=== PATIENT | male | born 1960 | race Caucasian/White ===

== ENCOUNTER 2023-07-18 08:07 | Observation (INO) ==
--- NOTE | 2023-07-18 08:19 | Emergency Department Note ---
Impression & Plan Stroke-like symptoms, HTN (hypertension), Hyperglycemia due to type 2 diabetes mellitus ED Provider Note Provider: Estiven Li MD DATE OF SERVICE: 07/18/2023 CHIEF COMPLAINT: Facial droop, speech issues, tingling HISTORY OF PRESENT ILLNESS: Patient is a 63-year-old gentleman history of diabetes and seizures by report presenting via ambulance from the present today. Patient states he went to bed normal around 11 PM this previous night. Awoke this morning around 530 or so noted by his cellmate to have some odd speech. [facility] Did have breakfast. Noted to have some right facial droop with some tingling of the right arm and to the right face. States his right-sided vision is also a little bit blurred in both eyes. Denies any headache or pain. Denies trauma. Denies chest pain, shortness of breath, or abdominal pain or nausea. Denies any difficulty swallowing with the brief breakfast yet earlier. Denies a history of stroke. Denies any numbness or tingling in the legs at this time. Denies dizziness or lightheadedness PAST MEDICAL HISTORY: As noted above MEDICATIONS: Reviewed medication list includes insulin SOCIAL HISTORY: Inmate at the [facility] correctional [facility] [place] PHYSICAL EXAM: GENERAL: alert and oriented in no acute distress on stretcher Head: normocephalic and atraumatic EYES: No injection, discharge or icterus except for some mild injection of the right eye. Some decreased length and closure of the right eye. PERRL, EOMI. Little bit of blurriness in both eyes reported in the right sided visual mendoza. Does have a little bit of difficulty of closing his right eye. NECK: Trachea midline. Supple. ENT: Mucous membranes pink and moist. Pharynx without erythema or exudate. LUNGS: Airway patent. No retractions. Breath sounds clear HEART: Regular rate and rhythm. No chest wall tenderness ABDOMEN: Soft and non-tender, without guarding or rebound. SKIN: Acyanotic, warm, dry, without rashes EXTREMITIES: Without swelling, tenderness or deformity NEUROLOGICAL: Moving all extremities to command. Right facial droop noted and asymmetry. Some slight decreased sensation to the right face and right arm. Legs symmetric sensation. Good fitter type bar and segment strength bilaterally in the hands as well as good strength in the bilateral lower legs. EK bpm normal sinus rhythm. No PVC or PAC. No acute ST segment elevation or depression with a QTc of 452. CONTINUOUS CARDIAC MONITORING: was ordered and showed a heart rate of 80s and 90s bpm in normal sinus rhythm Patient's laboratory studies and imaging reviewed. Differential includes Infection, dehydration, metabolic abnormality, hypo/hyperglycemia, electrolyte disturbance, anemia, hypoxia, cardiac sources, intracerebral event, toxicologic, neurologic, as well as other pathologies. IMPRESSION/MEDICAL DECISION MAKING: No infectious symptomatologies. Unfortunately wake-up stroke with last known well outside 4-1/2-hour window. Some subtle right-sided numbness with the right facial droop noted. Reported some mildly blurred vision in the right visual mendoza. No headache or trauma. Not hypoglycemic. Sent for CT scans of the head as well as CT angiograms of the head and neck to look for possible vascular abnormality or bleeding. Without pain. Not severely hypertensive. Does have risk factors for CVA. TNK/thrombolytics not indicated given significant time since last known well. Seems less likely to be LVO given somewhat low NIH and deficits. Blood work here without significant cytosis or anemia. No severe electrolyte abnormalities with some mild hyperglycemia likely related to diabetes noted. No troponin elevation I doubt this is cardiac in nature. Negative COVID testing. All the facial findings could represent Hudson's palsy including significant and closing his right eye, extension of the symptoms into the arm as well as the report of some blurry vision in both eyes does not make me think this represents Hudson's palsy. Lyme screen was added. CTAs per radiology report without evidence of significant vascular abnormality. Again outside the window for thrombolytics. Will bring to the hospital for further stroke workup and evaluation. Hospitalist contacted and patient updated. DIAGNOSIS: Strokelike symptoms, hyperglycemia due to type 2 diabetes, hypertension DISPOSITION: Hospitalist will evaluate Patient was agreeable with this plan. 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 Beliefs That Will Affect Care: None marital status: Current Living Situation: Other Current Living Situation Comment: retirement Feels Safe at Home: Yes Assistive Devices: Cane Allergies Allergies Allergy/AdvReac Type Severity Reaction Status Date / Time No Known Allergies Allergy Verified 12/06/20 12:23 Home Meds Home Medications Medication Instructions Recorded Confirmed insulin human U-100 NPH-regulr 20 unit subcut BID 09/28/19 12/06/20 70-30 mix 100 unit/mL subcutaneous susp (Novolin 70/30 U-100 Insulin) insulin regular human 100 unit/mL 1 sliding scale dose subcut BID 09/28/19 12/06/20 injection solution (Novolin R Regular U-100 Insulin) topiramate 50 mg tablet (Topamax) 50 mg PO BID 11/21/19 12/06/20 aripiprazole 5 mg tablet 5 mg PO HS 01/19/20 12/06/20 atorvastatin 40 mg tablet (Lipitor) 40 mg PO HS 12/06/20 12/06/20 diphenhydramine HCl 50 mg capsule 50 mg PO HS 12/06/20 12/06/20 lisinopril 10 mg tablet 10 mg PO QAM 12/06/20 12/06/20 metformin 1,000 mg tablet 1,000 mg PO BID 12/06/20 12/06/20 paroxetine HCl 20 mg tablet (Paxil) 20 mg PO QAM 12/06/20 12/06/20 phenytoin 50 mg chewable tablet 150 mg PO BID 12/06/20 12/06/20 (Dilantin Infatabs) sulfamethoxazole 800 1 tab PO BID 12/06/20 12/06/20 mg-trimethoprim 160 mg tablet (Bactrim DS) Results & Data (ED) Vital Signs Vital Signs - 24 hr 07/18/23 08:16 07/18/23 08:16 07/18/23 09:57 Temperature 36.6 C Temperature Source Oral Pulse Rate 100 H Pulse Rate [Right Finger] 81 Pulse Rhythm [Right Finger] Pulse Strength [Right Finger] Respiratory Rate 18 18 Respiratory Effort / Characteristics Non-Labored Spontaneous Respiratory Depth Normal Blood Pressure 168/100 H Blood Pressure [Left Arm] 128/89 Blood Pressure Mean 122 Blood Pressure Mean [Left Arm] 102 Blood Pressure Position [Left Arm] Pulse Oximetry 95 95 95 Oxygen Delivery Method Room Air Room Air Room Air Sepsis Recent Fever Within 48 Hours No Sepsis New/Unexplained Change in Mental Status N/A Sepsis Action Taken by Nursing No Action Required 07/18/23 12:09 07/18/23 14:00 Temperature Temperature Source Pulse Rate Pulse Rate [Right Finger] 76 69 Pulse Rhythm [Right Finger] Regular Regular Pulse Strength [Right Finger] Normal Normal Respiratory Rate 18 17 Respiratory Effort / Characteristics Non-Labored Spontaneous Non-Labored Spontaneous Respiratory Depth Normal Normal Blood Pressure Blood Pressure [Left Arm] 136/96 119/97 Blood Pressure Mean Blood Pressure Mean [Left Arm] 109 104 Blood Pressure Position [Left Arm] Semi-fowlers Pulse Oximetry 96 95 Oxygen Delivery Method Room Air Room Air Sepsis Recent Fever Within 48 Hours Sepsis New/Unexplained Change in Mental Status Sepsis Action Taken by Nursing Laboratory Data 07/18/23 08:17 07/18/23 08:17 Lab Results 07/18/23 07/18/23 07/18/23 Range/Units 08:12 08:17 08:19 WBC 7.93 (4.8-10.8) K/ul RBC 5.15 (4.70-6.10) M/uL Hgb 14.9 (14.0-18.0) g/dl POC Hgb (14.0-18.0) g/dl Hct 43.7 (42.0-52.0) % POC Hct (42-52) % MCV 84.9 (80.0-100.0) fL MCH 28.9 (25.0-34.0) pg MCHC 34.1 (32.0-36.0) g/dL RDW Std Deviation 39.1 (36.4-46.3) fL RDW Coeff of Genny 12.7 (11.5-14.5) % Plt Count 283 (130-400) K/uL MPV 10.4 (9.4-12.4) fL Immature Gran % (Auto) 0.6 % Neut % (Auto) 55.0 % Lymph % (Auto) 29.9 % [place] % (Auto) 7.1 % Eos % (Auto) 6.6 % Baso % (Auto) 0.8 % Neut # (Auto) 4.37 (1.40-6.50) K/uL Lymph # (Auto) 2.37 (1.20-3.40) K/uL [place] # (Auto) 0.56 (0.11-0.59) K/uL Eos # (Auto) 0.52 H (0.00-0.50) K/uL Baso # (Auto) 0.06 (0.00-0.20) K/uL Immature Gran # (Auto) 0.05 (0.01-0.20) K/uL PT 12.8 H (9.0-12.0) Seconds INR 1.2 H (0.9-1.1) APTT 28 (21-31) Seconds PTT Ratio 1.0 POC Sodium (135-144) mmol/L Sodium 133 L (136-145) mmol/L POC Potassium (3.3-5.0) mmol/L Potassium 4.1 (3.5-5.1) mmol/L POC Chloride (101-112) mmol/L Chloride 100 (98-107) mmol/L Carbon Dioxide 22 (21-32) mmol/L POC Total CO2 (24-31) mmol/L Anion Gap 11 (3-11) POC Anion Gap (16-25) mmol/L POC BUN (7-18) mg/dl BUN 10 (6-23) mg/dl Creatinine 0.69 (0.6-1.4) mg/dl POC Creatinine (0.6-1.3) mg/dl Est Cr Clr Drug Dosing 134.4 ml/min Est GFR ( Amer) 117.9 ml/min Est GFR (Non-Af Amer) 101.7 ml/min BUN/Creatinine Ratio 14.5 (10-20) Glucose 250 H (70-99(Fasting)) mg/dl POC Glucose 231 H (70-99) mg/dl POC Glucose (other) (70-99) mg/dl Calcium 9.3 (8.6-10.3) mg/dl POC Ioniz Calcium Noé (1.12-1.32) mmol/l Magnesium 1.7 (1.7-2.4) mg/dl Total Bilirubin 0.7 (0.2-1.0) mg/dl AST 33 (13-39) U/L ALT 33 (7-52) U/L Alkaline Phosphatase 58 (34-104) U/L Troponin I High Sens 7.2 (0-20) pg/ml Total Protein 7.8 (6.0-8.3) gm/dl Albumin 4.1 (3.4-5.0) gm/dl Globulin 3.7 (2.5-4.0) gm/dl Albumin/Globulin Ratio 1.1 (0.9-2) Lyme Disease Screen Negative (Negative) SARS-CoV-2, RNA, NAAT NEGATIVE (NEGATIVE) Blood Type Antibody Screen 07/18/23 07/18/23 Range/Units 08:21 08:24 WBC (4.8-10.8) K/ul RBC (4.70-6.10) M/uL Hgb (14.0-18.0) g/dl POC Hgb 15.3 (14.0-18.0) g/dl Hct (42.0-52.0) % POC Hct 45 (42-52) % MCV (80.0-100.0) fL MCH (25.0-34.0) pg MCHC (32.0-36.0) g/dL RDW Std Deviation (36.4-46.3) fL RDW Coeff of Genny (11.5-14.5) % Plt Count (130-400) K/uL MPV (9.4-12.4) fL Immature Gran % (Auto) % Neut % (Auto) % Lymph % (Auto) % [place] % (Auto) % Eos % (Auto) % Baso % (Auto) % Neut # (Auto) (1.40-6.50) K/uL Lymph # (Auto) (1.20-3.40) K/uL [place] # (Auto) (0.11-0.59) K/uL Eos # (Auto) (0.00-0.50) K/uL Baso # (Auto) (0.00-0.20) K/uL Immature Gran # (Auto) (0.01-0.20) K/uL PT (9.0-12.0) Seconds INR (0.9-1.1) APTT (21-31) Seconds PTT Ratio POC Sodium 135 (135-144) mmol/L Sodium (136-145) mmol/L POC Potassium 4.1 (3.3-5.0) mmol/L Potassium (3.5-5.1) mmol/L POC Chloride 100 L (101-112) mmol/L Chloride (98-107) mmol/L Carbon Dioxide (21-32) mmol/L POC Total CO2 22 L (24-31) mmol/L Anion Gap (3-11) POC Anion Gap 18.0 (16-25) mmol/L POC BUN 9 (7-18) mg/dl BUN (6-23) mg/dl Creatinine (0.6-1.4) mg/dl POC Creatinine 0.5 L (0.6-1.3) mg/dl Est Cr Clr Drug Dosing ml/min Est GFR ( Amer) ml/min Est GFR (Non-Af Amer) ml/min BUN/Creatinine Ratio (10-20) Glucose (70-99(Fasting)) mg/dl POC Glucose (70-99) mg/dl POC Glucose (other) 267 H (70-99) mg/dl Calcium (8.6-10.3) mg/dl POC Ioniz Calcium Noé 1.19 (1.12-1.32) mmol/l Magnesium (1.7-2.4) mg/dl Total Bilirubin (0.2-1.0) mg/dl AST (13-39) U/L ALT (7-52) U/L Alkaline Phosphatase (34-104) U/L Troponin I High Sens (0-20) pg/ml Total Protein (6.0-8.3) gm/dl Albumin (3.4-5.0) gm/dl Globulin (2.5-4.0) gm/dl Albumin/Globulin Ratio (0.9-2) Lyme Disease Screen (Negative) SARS-CoV-2, RNA, NAAT (NEGATIVE) Blood Type AB Positive Antibody Screen NEGATIVE Administered Medications Discontinued Medications Ioversol (Optiray 320 125ml) 112 ml IV ONCE ONE Stop: 07/18/23 08:33 Last Admin: 07/18/23 08:32 Dose: 112 ml Documented By: RIKY Multi-Ingredient Cream (Artificial Tears Op Oint 3.5 Gm Tube) 1 appln OP NOW ONE Stop: 07/18/23 09:28 Last Admin: 07/18/23 10:21 Dose: 1 appln Documented By: HARSHA Imaging Data Radiologist's Impression: Head CT 07/18/23 08:[address] DOSE: HISTORY: Right-sided facial droop. Slurred speech. R neuro deficit, acute stroke suspected TECHNIQUE: Multiaxial CT images of the head were performed without the use of intravenous contrast. Automated exposure control was utilized for this study. A dose lowering technique was utilized adhering to the principles of ALARA. Comparison: Head CT 12/06/2020. Findings: Mucosal thickening within the ethmoid air cells and maxillary sinuses with a small fluid level within the left maxillary sinus. This suggests acute or chronic paranasal sinusitis. The mastoid air cells are clear. The calvarium and skull base are intact. The ventricles and sulci are within normal limits. There is no mass, hematoma, midline shift, or acute infarct. Impression: No acute intracranial abnormality. Paranasal sinus disease as described above. ACT 112: Negative or not required by law. Electronically signed by: Kevin Villafana M.D. 07/18/2023 8:58 AM Head CTA 07/18/23 08:12 HEAD CTA HISTORY: R neuro deficit, acute stroke suspected TECHNIQUE: Multiaxial CT images of the head were performed following the intravenous administration of contrast to evaluate the major cerebral vessels. 3D/MIP images were also obtained. Sagittal and coronal reformats were reviewed. A dose lowering technique was utilized adhering to the principles of ALARA. COMPARISON: None. FINDINGS: There is no mass, hematoma, midline shift, or acute infarct. Visualized intracranial internal carotid arteries, distal vertebral arteries, and basilar artery are widely patent. There is no significant stenosis, occlusion, or aneurysm seen within the bilateral ACAs, MCAs, or lead database developer. The major dural venous sinuses are patent. IMPRESSION: No significant stenosis, occlusion, or aneurysm within the [place] of [place]. ACT 112: Negative or not required by law. Electronically signed by: Kevin Villafana M.D. 07/18/2023 9:01 AM Neck CTA 07/18/23 08:12 CT angio neck with con CLINICAL HISTORY: 63 years-old Male with neuro deficit, acute stroke suspected. Acute stroke like symptoms COMPARISON STUDY: CTA head of same day TECHNIQUE: Following the IV administration of 112 mL of Optiray, CT angiogram of the neck was performed from the aortic arch to the skull base. Images are reviewed in the axial, sagittal, and coronal planes. 3-D MIPS images are created and assessed. IV contrast was administered without complication. All measurements were calculated based on NASCET criteria. A dose lowering technique was utilized adhering to the principles of ALARA. CT DOSE: 1123.49 mGy.cm FINDINGS: Patency of the common and internal carotid arteries with only minimal atherosclerosis. The vertebral arteries are codominant and widely patent. No aneurysm, dissection, high-grade stenosis or arterial occlusion. Moderate mucosal thickening of the imaged paranasal sinuses. Multilevel degenerative changes of the cervical spine. Nonspecific borderline enlarged cervical chain lymph nodes measure up to 10 mm. Lung apices are clear without pneumothorax. IMPRESSION: 1. Unremarkable CTA of the neck. 2. Moderate mucosal thickening of the paranasal sinuses. ACT 112: Negative or not required by law. The above report was generated using voice recognition software. It may contain grammatical, syntax or spelling errors. Electronically signed by: Harjeet Murphy M.D. 07/18/2023 9:05 AM Brain MRI 07/18/23 10:23 MR brain wo con CLINICAL HISTORY: right facial droop TECHNIQUE: Multiplanar and multisequence MR images of the brain were obtained without intravenous contrast. Comparison: None available at the time of this dictation. FINDINGS: No abnormal restricted diffusion is identified. Foci of T2 and FLAIR hyperintensity are noted in the paraventricular areas consistent with chronic small vessel ischemic disease. Ex vacuo ventriculomegaly and sulcal enlargement is noted compatible with diffuse volume loss. No mass is seen. There is no mass effect or midline shift. There is no evidence of acute intraparenchymal hemorrhage. No extra axial fluid collections are seen. The corpus callosum, pituitary gland, and cerebellar tonsils appear grossly unremarkable. Flow voids of the major intracranial arterial vessels are identified. Bilateral maxillary sinus disease is seen. IMPRESSION: Bilateral maxillary sinus disease is seen. No evidence of acute infarct. ACT 112: Negative or not required by law. Electronically signed by: Ignacio Glover M.D. 07/18/2023 1:27 PM Discharge Plan Visit Data Chief Complaint: Stroke/CVA Symptoms ED Provider: Estiven Li Discharge Problem: Stroke-like symptoms, HTN (hypertension), Hyperglycemia due to type 2 diabetes mellitus Patient Disposition: Being Evaluated by Hospitalist Forms Stand Alone Forms: [facility] Prescriptions Prescriptions: No Action aripiprazole 5 mg Tablet 5 mg PO HS Rx Instructions: Must crush and float in water with mouth check Novolin 70/30 U-100 Insulin 100 unit/mL (70-30) Suspension 20 unit SUBCUT BID Rx Instructions: 0630 and 1530 Novolin R Regular U100 Insulin 100 unit/mL Solution 1 sliding scale dose SUBCUT BID Rx Instructions: <200=no coveraGe, 201-250=2 units, 251-300=4 units, 301-350=6 units, 351- 400=8 units, >400=10 units. 0630 AND 1530. topiramate [Topamax] 50 mg Tablet 50 mg PO BID atorvastatin [Lipitor] 40 mg Tablet 40 mg PO HS Rx Instructions: CRUSH diphenhydramine HCl 50 mg Capsule 50 mg PO HS Rx Instructions: Crush and float in water phenytoin [Dilantin Infatabs] 50 mg Tablet,Chewable 150 mg PO BID Rx Instructions: Chew and swallow 3 tablets twice daily sulfamethoxazole-trimethoprim [Bactrim DS] 800-160 mg Tablet 1 tab PO BID paroxetine HCl [Paxil] 20 mg Tablet 20 mg PO QAM Rx Instructions: Crush and float in water metformin 1,000 mg Tablet 1,000 mg PO BID lisinopril 10 mg Tablet 10 mg PO QAM Rx Instructions: CRUSH Referrals Referrals: Cydney WALTER [Primary Care Provider] - Discharge Problem: HTN (hypertension) Qualifiers: Hypertension type: unspecified Qualified Code(s): I10 - Essential (primary) hypertension Hyperglycemia due to type 2 diabetes mellitus Qualifiers: Diabetes mellitus alf insulin use: with alf use Qualified Code(s): E11.65 - Type 2 diabetes mellitus with hyperglycemia
[2023-07-18 08:31] LABS: Basophils # (auto) 0.06 K/uL (0.00-0.20); Basophils % (auto) 0.8 %; Eosinophils # (auto) 0.52 K/uL (0.00-0.50); Eosinophils % (auto) 6.6 %; Hematocrit (blood only) 43.7 % (42.0-52.0); Hemoglobin 14.9 g/dl (14.0-18.0); Immature Granulocytes # (auto) 0.05 K/uL (0.01-0.20); Immature Granulocytes % (auto) 0.6 %; Lymphocytes # (auto) 2.37 K/uL (1.20-3.40); Lymphocytes % (auto) 29.9 %; Mean Corpuscular Hemoglobin 28.9 pg (25.0-34.0); Mean Corpuscular Hgb Conc 34.1 g/dL (32.0-36.0); Mean Corpuscular Volume 84.9 fL (80.0-100.0); Mean Platelet Volume 10.4 fL (9.4-12.4); Monocytes # (auto) 0.56 K/uL (0.11-0.59); Monocytes % (auto) 7.1 %; Neutrophils # (auto) 4.37 K/uL (1.40-6.50); Platelet Count 283 K/uL (130-400); RDW Coefficient of Variation 12.7 % (11.5-14.5); RDW Standard Deviation 39.1 fL (36.4-46.3); Red Blood Count 5.15 M/uL (4.70-6.10); White Blood Count 7.93 K/ul (4.8-10.8)
[2023-07-18] MEDS: OPTIRAY 320 125ml IV ONE (08:32)
[2023-07-18 08:36] LABS: iSTAT Creatinine 0.5 mg/dl (0.6-1.3); iSTAT Hemoglobin 15.3 g/dl (14.0-18.0); iSTAT Ionized Calcium 1.19 mmol/l (1.12-1.32); iSTAT Potassium 4.1 mmol/L (3.3-5.0)
[2023-07-18 08:50] LABS: Albumin Globulin Ratio 1.1 (0.9-2); Albumin Level 4.1 gm/dl (3.4-5.0); BUN Creatinine Ratio 14.5 (10-20); Bilirubin,Total 0.7 mg/dl (0.2-1.0); Calcium 9.3 mg/dl (8.6-10.3); Creatinine Clr Calc Pharmacy 134.4 ml/min; Est GFR (African American) 117.9 ml/min; Est GFR (Non-African American) 101.7 ml/min; Globulin 3.7 gm/dl (2.5-4.0); Magnesium 1.7 mg/dl (1.7-2.4); Potassium 4.1 mmol/L (3.5-5.1); Total Protein 7.8 gm/dl (6.0-8.3)
[2023-07-18 08:56] LABS: Troponin I High Sensitivity 7.2 pg/ml (0-20)
--- NOTE | 2023-07-18 09:01 | CT Scan Report ---
HEAD CT NONCONTRAST CT DOSE: HISTORY: Right-sided facial droop. Slurred speech. R neuro deficit, acute stroke suspected TECHNIQUE: Multiaxial CT images of the head were performed without the use of intravenous contrast. A utomated exposure control was utilized for this study. A dose lowering technique was utilized adheri ng to the principles of ALARA. Comparison: Head CT 12/06/2020. Findings: Mucosal thickening within the ethmoid air cells and maxillary sinuses with a small fluid le jin within the left maxillary sinus. This suggests acute or chronic paranasal sinusitis. The mastoid air cells are clear. The calvarium and skull base are intact. The ventricles and sulci are within nor mal limits. There is no mass, hematoma, midline shift, or acute infarct. Impression: No acute intracranial abnormality. Paranasal sinus disease as described above. ACT 112: Negative or not required by law. Electronically signed by: Kevin Villafana M.D. 07/18/2023 8:58 AM
--- NOTE | 2023-07-18 09:02 | CT Scan Report ---
HEAD CTA HISTORY: R neuro deficit, acute stroke suspected TECHNIQUE: Multiaxial CT images of the head were performed following the intravenous administration o f contrast to evaluate the major cerebral vessels. 3D/MIP images were also obtained. Sagittal and co won reformats were reviewed. A dose lowering technique was utilized adhering to the principles of A GERMAN. COMPARISON: None. FINDINGS: There is no mass, hematoma, midline shift, or acute infarct. Visualized intracranial administration internship al carotid arteries, distal vertebral arteries, and basilar artery are widely patent. There is no sig nificant stenosis, occlusion, or aneurysm seen within the bilateral ACAs, MCAs, or final operations technician. The major du ral venous sinuses are patent. IMPRESSION: No significant stenosis, occlusion, or aneurysm within the [place] of [place]. ACT 112: Negative or not required by law. Electronically signed by: Kevin Villafana M.D. 07/18/2023 9:01 AM
[2023-07-18 09:04] LABS: INR 1.2 (0.9-1.1); Partial Thromboplastin Time 28 Seconds (21-31); Prothrombin Time 12.8 Seconds (9.0-12.0)
--- NOTE | 2023-07-18 09:07 | CT Scan Report ---
CT angio neck with con CLINICAL HISTORY: 63 years-old Male with neuro deficit, acute stroke suspected. Acute stroke like symptoms COMPARISON STUDY: CTA head of same day TECHNIQUE: Following the IV administration of 112 mL of Optiray, CT angiogram of the neck was perform ed from the aortic arch to the skull base. Images are reviewed in the axial, sagittal, and coronal pl anes. 3-D MIPS images are created and assessed. IV contrast was administered without complication. Al l measurements were calculated based on NASCET criteria. A dose lowering technique was utilized adhe ring to the principles of ALARA. CT DOSE: 1123.49 mGy.cm FINDINGS: Patency of the common and internal carotid arteries with only minimal atherosclerosis. The vertebral arteries are codominant and widely patent. No aneurysm, dissection, high-grade stenosis or arterial o cclusion. Moderate mucosal thickening of the imaged paranasal sinuses. Multilevel degenerative changes of the c ervical spine. Nonspecific borderline enlarged cervical chain lymph nodes measure up to 10 mm. Lung a pices are clear without pneumothorax. IMPRESSION: 1. Unremarkable CTA of the neck. 2. Moderate mucosal thickening of the paranasal sinuses. ACT 112: Negative or not required by law. The above report was generated using voice recognition software. It may contain grammatical, syntax o r spelling errors. Electronically signed by: Harjeet Murphy M.D. 07/18/2023 9:05 AM
[2023-07-18] MEDS: ARTIFICIAL TEARS OP OINT 3.5 GM TUBE OP ONE (10:21)
--- NOTE | 2023-07-18 10:31 | History & Physical Report ---
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 Brain MRI scan is pending. He does have some associated paresthesia of the right upper extremity however. No peripheral motor deficits however. Continue current medication including aspirin. Supportive care. (2) Hyperglycemia due to type 2 diabetes mellitus: Plan: ADA diet. Sliding scale insulin coverage. Continue basal insulin coverage. Metformin is on hold (3) HTN (hypertension): Plan: Mildly hypertensive and tachycardic on admission. Free T3 and free T4 levels are pending. (4) Seizure disorder: Plan: Stable. Continue Dilantin and Topamax Plan Hopeful return to better assisted tomorrow, July 19, if brain MRI scan is negative for acute CVA History of Present Illness Chief Complaint: Right facial droop, right arm paresthesia Primary Care Provider: JOSE ANGEL Lamas 63-year-old white male from been in assisted who awoke this morning with a right facial droop and some paresthesia of the right upper extremity and right lower extremity. He has no peripheral motor deficits however. He stated fella prisoners told him that he had the right facial droop. Apparently he did not realize this on his own. He was brought to the ED for evaluation. Head CT scan is negative. Head and neck CTA also negative. He is mildly hypertensive and mildly tachycardic. Nonfasting glucose 250. He is placed in observation for further evaluation. Brain MRI scan is pending. Allergies Allergy/AdvReac Type Severity Reaction Status Date / Time No Known Allergies Allergy Verified 12/06/20 12:23 Home Medications Medication Instructions Recorded Confirmed Type insulin human U-100 NPH-regulr 20 unit subcut BID 09/28/19 12/06/20 History 70-30 mix 100 unit/mL subcutaneous susp (Novolin 70/30 U-100 Insulin) insulin regular human 100 unit/mL 1 sliding scale dose subcut BID 09/28/19 12/06/20 History injection solution (Novolin R Regular U-100 Insulin) topiramate 50 mg tablet (Topamax) 50 mg PO BID 11/21/19 12/06/20 History aripiprazole 5 mg tablet 5 mg PO HS 01/19/20 12/06/20 History atorvastatin 40 mg tablet (Lipitor) 40 mg PO HS 12/06/20 12/06/20 History diphenhydramine HCl 50 mg capsule 50 mg PO HS 12/06/20 12/06/20 History lisinopril 10 mg tablet 10 mg PO QAM 12/06/20 12/06/20 History metformin 1,000 mg tablet 1,000 mg PO BID 12/06/20 12/06/20 History paroxetine HCl 20 mg tablet (Paxil) 20 mg PO QAM 12/06/20 12/06/20 History phenytoin 50 mg chewable tablet 150 mg PO BID 12/06/20 12/06/20 History (Dilantin Infatabs) sulfamethoxazole 800 1 tab PO BID 12/06/20 12/06/20 History mg-trimethoprim 160 mg tablet (Bactrim DS) Past Med/Surg History Medical History (Updated 07/18/23 @ 10:29 by Roger Harris MD) No pertinent family history Seizures Hepatitis C Depression Surgical History (Updated 12/06/20 @ 18:29 by Bo Vasquez MD) No pertinent past surgical history Social History Smoking Status: Never smoker Tobacco Type: Cigarettes Hx Alcohol Use: No Hx Substance Use: No Preferred Language: Armenian Communication Ability: Effective Field Property Loss Specialist Required: No Beliefs That Will Affect Care: None marital status: Current Living Situation: Other Current Living Situation Comment: assisted Feels Safe at Home: Yes Assistive Devices: Cane Review of Systems 2 Review of Systems: Constitutional-no fever or chills ENT-no blurred vision, no double vision, no epistaxis, no sore throat Respiratory-no cough, no wheezing, no shortness of breath Cardiac-no palpitations, no chest pain, no syncope GI-no nausea, vomiting, diarrhea, melena, hematochezia -no urinary retention, no urinary incontinence, no dysuria, no hematuria Musculoskeletal-no joint pain, no muscle tenderness Skin-no bruising, no rashes, no pruritus Neuro-no isolated weakness. He did develop a right facial droop overnight. He has some numbness of the right upper extremity Psych-no depression, no anxiety Physical Exam 2 Physical Exam: General-alert and oriented x3, no fevers, no chills HEENT-head atraumatic and normocephalic, pupils equal and reactive to light, extraocular muscles intact Neck-no lymphadenopathy or thyromegaly, trachea midline Chest-clear to auscultation. No rales, wheezing or rhonchi Cardiac-regular rate and rhythm, normal S1 and S2, no murmurs Abdomen-normal bowel sounds, nontender, no hepatosplenomegaly Extremities-no cyanosis, clubbing, or edema Neuro-peripheral motor and sensory function within normal limits, strength symmetrical. Right facial droop evident. He is unable to completely close the right eye. Psych-normal affect, normal mood Results & Data Results & Data Vital Signs (Past 12 Hours) Vital Signs Temp Pulse Pulse Resp BP BP Pulse Ox 07/18/23 09:57 81 18 128/89 95 07/18/23 08:16 95 07/18/23 08:16 36.6 C 100 H 18 168/100 H 95 O2 Del Method 07/18/23 09:57 Room Air 07/18/23 08:16 Room Air 07/18/23 08:16 Room Air Laboratory Results 07/18/23 08:17 07/18/23 08:17 PG Care Time/CCT Total # of Minutes Spent Total Time Spent with Patient: Total time spent is greater than 50% in coordination of care (as documented) at patient's floor/unit and/or counseling patient: Coding Level of Care Code 65645 INT INP/OBS CARE 3/75MIN Diagnoses Facial droop R29.810 Hyperglycemia due to type 2 diabetes mellitus E11.65; Z79.4 Diabetes mellitus rn long term care insulin use: with halfway use HTN (hypertension) I10 Hypertension type: unspecified Seizure disorder G40.909 (2) Hyperglycemia due to type 2 diabetes mellitus Diabetes mellitus halfway insulin use: with halfway use Qualified Code(s): E11.65 - Type 2 diabetes mellitus with hyperglycemia; Z79.4 - senior care (current) use of insulin (3) HTN (hypertension) Hypertension type: unspecified Qualified Code(s): I10 - Essential (primary) hypertension
--- NOTE | 2023-07-18 11:03 | Electrocardiogram Report ---
Test Reason : Blood Pressure : / mmHG Vent. Rate : 095 BPM Atrial Rate : 095 BPM P-R Int : 136 ms QRS Dur : 078 ms QT Int : 360 ms P-R-T Axes : 052 031 065 degrees QTc Int : 452 ms Normal sinus rhythm Normal ECG When compared with ECG of 29-SEP-2019 08:04, Sinus rhythm has replaced Ectopic atrial rhythm Nonspecific T wave abnormality no longer evident in Inferior leads Nonspecific T wave abnormality no longer evident in Lateral leads Confirmed by Shaun Lozano ([id number]) on 07/18/2023 11:03:07 AM Referred By: Confirmed By:Himanshu Lozano
--- NOTE | 2023-07-18 13:28 | Magnetic Resonance Report ---
MR brain wo con CLINICAL HISTORY: right facial droop TECHNIQUE: Multiplanar and multisequence MR images of the brain were obtained without intravenous con trast. Comparison: None available at the time of this dictation. FINDINGS: No abnormal restricted diffusion is identified. Foci of T2 and FLAIR hyperintensity are noted in the paraventricular areas consistent with chronic small vessel ischemic disease. Ex vacuo ventriculomegal y and sulcal enlargement is noted compatible with diffuse volume loss. No mass is seen. There is no m ass effect or midline shift. There is no evidence of acute intraparenchymal hemorrhage. No extra axia l fluid collections are seen. The corpus callosum, pituitary gland, and cerebellar tonsils appear jonathon ssly unremarkable. Flow voids of the major intracranial arterial vessels are identified. Bilateral maxillary sinus disea se is seen. IMPRESSION: Bilateral maxillary sinus disease is seen. No evidence of acute infarct. ACT 112: Negative or not required by law. Electronically signed by: Ignacio Glover M.D. 07/18/2023 1:27 PM
[2023-07-18] MEDS ORDERED: ONDANSETRON INJ 2 MG/ML 2 ML VIAL IV PRN (14:56)
[2023-07-18] MEDS ORDERED: DEXTROSE 50% 50 ML SYRINGE IV PRN (14:56)
[2023-07-18] MEDS ORDERED: GLUCOSE 40% GEL 15 GM TUBE PO PRN (14:56)
[2023-07-18] MEDS ORDERED: ACETAMINOPHEN 325 MG TAB PO PRN (14:56)
[2023-07-18] MEDS ORDERED: GLUCAGON FOR INJ 1 MG VIAL SQ PRN (14:56)
[2023-07-18] MEDS ORDERED: CARBOHYDRATES FOR HYPOGLYCEMIA PO PRN (14:56)
[2023-07-18] MEDS ORDERED: GLUCOSE 10 TAB/TUBE PO PRN (14:56)
[2023-07-18 15:48] LABS: T4 Free Thyroxine 0.99 ng/dl (0.61-1.60)
[2023-07-18] MEDS: ENOXAPARIN INJ 40 MG/0.4 ML SYR SQ SCH (16:34)
[2023-07-18] MEDS: INSULIN ASPART PER UNIT CHARGE SC SCH (18:18)
[2023-07-18] MEDS: INSULIN HUMAN NPH SC SCH (18:19)
[2023-07-18] MEDS ORDERED: INSULIN HUMAN 70% NPH/30% REGULAR SC SCH (21:00)
[2023-07-18] MEDS: PHENYTOIN 50 MG CHEW PO SCH (21:42)
[2023-07-18] MEDS: diphenhydrAMINE Capsule 25 MG CAP PO SCH (21:44)
[2023-07-18] MEDS: TOPIRAMATE 50 MG TAB PO SCH (21:44)
[2023-07-18] MEDS: ARIPiprazole 5 MG TAB PO SCH (21:53)
[2023-07-18] MEDS: ATORVASTATIN 40 MG TAB PO SCH (21:58)
[2023-07-19 03:20] LABS: Appearance Urine Clear (Clear); Bilirubin Urine Negative (Negative); Blood Urine Negative (Negative); Color Urine Orange; Glucose Urine UA 1+ (Negative); Ketones Urine Negative (Negative); Leukocyte Esterase Urine Negative (Negative); Nitrite Urine Negative (Negative); Protein Urine Negative (Negative); Specific Gravity Urine 1.011 (1.000-1.030); Urobilinogen Urine Negative (Negative); pH Urine 6.5 (4.5-7.5)
[2023-07-19] MEDS: lisinopril 10 MG TAB PO SCH (07:50)
[2023-07-19] MEDS: PARoxetine HCL 20 MG TAB PO SCH (07:50)
--- NOTE | 2023-07-19 12:28 | Discharge Summary ---
Date of Service July 19, 2023 Admission HPI Per Admitting Provider 63-year-old white male from been in senior care who awoke this morning with a right facial droop and some paresthesia of the right upper extremity and right lower extremity. He has no peripheral motor deficits however. He stated [facility]ella prisoners told him that he had the right facial droop. Apparently he did not realize this on his own. He was brought to the ED for evaluation. Head CT scan is negative. Head and neck CTA also negative. He is mildly hypertensive and mildly tachycardic. Nonfasting glucose 250. He is placed in observation for further evaluation. Brain MRI scan is pending. Principal Diagnosis Hudson's palsy, right facial area Discharge Exam General-alert and oriented x3, no fevers, no chills HEENT-head atraumatic and normocephalic, pupils equal and reactive to light, extraocular muscles intact Neck-no lymphadenopathy or thyromegaly, trachea midline Chest-clear to auscultation. No rales, wheezing or rhonchi Cardiac-regular rate and rhythm, normal S1 and S2, no murmurs Abdomen-normal bowel sounds, nontender, no hepatosplenomegaly Extremities-no cyanosis, clubbing, or edema Neuro-peripheral motor and sensory function within normal limits, strength symmetrical. Right facial droop evident. He is unable to completely close the right eye. 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 Brain MRI scan is negative for acute CVA. No peripheral motor deficits. Continue current medic ation including aspirin. Supportive care. (2) Hyperglycemia due to type 2 diabetes mellitus: ADA diet. Sliding scale insulin coverage. Continue basal insulin coverage. Metformin is on hold while hospitalized (3) HTN (hypertension): Mildly hypertensive and tachycardic on admission. Free T3 and free T4 levels are normal (4) Seizure disorder: Stable. Continue Dilantin and Topamax Plan Return to [facility] today, July 19. I have spoken to Dr. Jorgensen Total Time Total Time Spent Total Time Spent (In Minutes): 45 minutes Discharge Plan Discharge Items Patient Disposition: [facility] Reason For Visit: RIGHT FACIAL DROOP Discharge Diagnosis: Right face Hudson's palsy Activity: Resume your previous activity Non-emergency contact: Primary Care Provider Call non-emergency contact if: your symptoms worsen Follow-up/Referrals: Cydney WALTER [Primary Care Provider] - Diet: Carb Consistent or DM2 Addtl Attending Provider Instructions: Home medications remain the same. Pending Studies at Discharge: No Skilled Items Patient informed of condition?: Yes DNR: No Discharge Level of Care: Other Communicable Disease: No Discharge Prognosis: Stable Lines: None Urinary Catheter: No Medications and DC Order Prescriptions: Continued Novolin 70/30 U-100 Insulin 100 unit/mL (70-30) Suspension 34 unit SUBCUT BID Rx Instructions: 0630 and 1530 Novolin R Regular U100 Insulin 100 unit/mL Solution 1 sliding scale dose SUBCUT BID Rx Instructions: 151-200=2 units, 201-250=4 units, 251-300=6 units, 301-350=8 units, 351- 400=10 units, 400-450=12 units. >451 CALL MD 0630 AND 1530. metformin 1,000 mg Tablet 1,000 mg PO BID atorvastatin 80 mg Tablet 80 mg PO DAILY aspirin 81 mg Tablet,Delayed Release (Dr/Ec) 81 mg PO DAILY amlodipine 10 mg Tablet 10 mg PO DAILY paroxetine HCl 40 mg Tablet 40 mg PO DAILY lisinopril 40 mg Tablet 40 mg PO DAILY aripiprazole 20 mg Tablet 20 mg PO DAILY phenytoin sodium extended 100 mg Capsule 300 mg PO HS Admission Data Admit Date/Time: 07/18/23 14:52 Attending Provider: Roger Harris Admit Provider: Roger Harris Primary Care Provider: Cydney WALTER Other Providers: Roger Harris Coding Level of Care Code 86282 INP/OBS DISCH >30 MIN Diagnoses Facial droop R29.810 Hyperglycemia due to type 2 diabetes mellitus E11.65; Z79.4 Diabetes mellitus long term care social worker insulin use: with care home use HTN (hypertension) I10 Hypertension type: unspecified Seizure disorder G40.909
[2023-07-19] MEDS: INFLUENZA VIRUS QUADRIVALENT VACCINE (IIV4) 0.5 ML SYR IM ONE (13:03)
== END 2023-07-19 13:15 ==
LOC: ED 08:07 → EDINP 08:07
DX: E11.65 Type 2 diabetes mellitus with hyperglycemia; I10 Essential (primary) hypertension; Z79.84 Long term (current) use of oral hypoglycemic drugs; G51.0 Bell's palsy; Z79.4 Long term (current) use of insulin; Z11.52 Encounter for screening for COVID-19; Z79.899 Other long term (current) drug therapy; Z23 Encounter for immunization; G40.909 Epilepsy, unspecified, not intractable, without status epilepticus